=== PATIENT | male | born 1955 | race Caucasian/White ===

== ENCOUNTER 2018-06-11 13:33 | Emergency (ER) | payer OTHER ==
[~2018-06-11 13:33] MED LIST: EPINEPHrine 0.1 MG/ML SYG; ETOMIDATE 20 MG INJ; NA BICARBONATE 8.4% 50 ML SYG; SUCCINYLCHOLINE CHLORIDE 100 MG/5 ML SYG IV
[2018-06-11] MEDS: SOD CHLORIDE 0.9% 1,000 ML IV ×2 (13:55→14:44)
[2018-06-11 14:02] LABS: ADD MAN DIFF? NO
[2018-06-11 14:05] LABS: ABNORMAL IP MESSAGE 1; BASOPHIL # 0.1 10^3/ul (0.0-0.1); BASOPHILS % 0.5 % (0.0-2.0); EOSINOPHILS # 0.5 10^3/ul (0.0-0.5); EOSINOPHILS % 3.5 % (0.0-7.0); HEMATOCRIT 24.4 % (42.0-52.0); HEMOGLOBIN 8.3 g/dl (14.0-18.0); LYMPHOCYTES # 4.1 10^3/ul (0.8-2.9); LYMPHOCYTES % 31.4 % (15.0-51.0); MEAN CORPUSCULAR HEMOGLOBIN 34.6 pg (29.0-33.0); MEAN CORPUSCULAR VOLUME 101.7 fl (82.0-101.0); MONOCYTE # 2.3 10^3/ul (0.3-0.9); MONOCYTES % 17.9 % (0.0-11.0); NEUTROPHIL # 6.1 10^3/ul (1.6-7.5); NEUTROPHILS % 46.2 % (39.0-77.0); PLATELET COUNT 177 10^3/UL (140-415); POSITIVE DIFF @See below; RED CELL DISTRIBUTION WIDTH 20.1 % (11.5-14.5)
[2018-06-11 14:10] LABS: ALANINE AMINOTRANSFERASE 37 IU/L (13-69); ALBUMIN/GLOBULIN RATIO 0.68; ALKALINE PHOSPHATASE 446 IU/L (42-121); ANION GAP 16 (8-16); ASPARTATE AMINO TRANSFERASE 58 IU/L (15-46); BILIRUBIN,INDIRECT 0.3 mg/dl (0-1.1); BILIRUBIN,TOTAL 0.4 mg/dl (0.2-1.3); BLOOD UREA NITROGEN 74 mg/dl (7-20); CALCIUM 8.2 mg/dl (8.4-10.2); CARBON DIOXIDE 23 mmol/L (21-31); CHLORIDE 97 mmol/L (97-110); CREATININE 6.39 mg/dl (0.61-1.24); GLUCOSE 156 mg/dl (70-220); POTASSIUM 4.2 mmol/L (3.5-5.1); SODIUM 132 mmol/L (135-144); TOTAL PROTEIN 4.9 g/dl (6.1-8.1)
[2018-06-11 14:23] LABS: TROPONIN-I 0.064 ng/ml (0.000-0.120)
[2018-06-11] MEDS: ALBUMIN HUMAN 25% 100 ML IV (14:55)
[2018-06-11] MEDS ORDERED: NORepinephrine 8MG/250 ML (PMX 250 ML (17:02)
[2018-06-11] MEDS ORDERED: PROPOFOL 100 ML (17:07)
[2018-06-11 17:47] LABS: AMMONIA 74 umol/l (9-30)
[2018-06-11] MEDS: LACTULOSE 30ML CUP NGT (18:30)
[2018-06-11] MEDS: PROPOFOL 100 ML IV (18:30)
[2018-06-11 18:39] LABS: Arterial Base Excess -13.9 mmol/L (-3.0-3); Arterial Blood Gas Oxygen Sat 99.5 mmHG (95.0-98.0); Arterial COHb 0.5 % (0.0-3.0); Arterial Fraction of Oxyhgb 98.1 % (93.0-99.0); Arterial MetHb 0.9 % (0.0-1.5); Arterial Total Hemglobin 4.7 g/dl (12.0-18.0); Arterial pCO2 28.1 mmhg (35-45); MODE VENT - AC; Site LB
[2018-06-11] MEDS: EPINEPHrine 4 MG in SOD CHLORIDE 0.9% 246 ML IV (18:39)
[2018-06-11 18:55] LABS: IMMEDIATE SPIN CROSSMATCH 1
[2018-06-11 19:07] LABS: HEMOGLOBIN 3.5 g/dl (14.0-18.0)
[2018-06-11] MEDS: PHYTONADIONE 10 MG in DEXTROSE 5% 50 ML IVPB (19:39)
[2018-06-11 19:40] LABS: INR 1.83; PROTIME 21.6 Sec (11.9-14.9); PT RATIO 1.7
[2018-06-11 19:44] LABS: PARTIAL THROMBOPLASTIN TIME 83.8 Sec (25.0-35.0)
[2018-06-11] MEDS ORDERED: SOD CHLORIDE 0.9% 1,000 ML IV ×2 (19:54→21:09)
[2018-06-11 19:56] LABS: IMMEDIATE SPIN CROSSMATCH 1 9
[2018-06-11] MEDS ORDERED: ONDANSETRON 4 MG INJ IV (20:00)
[2018-06-11] MEDS ORDERED: ACETAMINOPHEN 325 MG TAB PO (20:00)
[2018-06-11 21:09] LABS: TYPE AND SCREEN 1
[2018-06-11] MEDS ORDERED: NORepinephrine 8MG/250 ML (PMX 250 ML IV (21:30)
[2018-06-11] MEDS ORDERED: ALBUTEROL HFA 8 GM INHALER INH (21:30)
[2018-06-11] MEDS ORDERED: PROPOFOL 100 ML IV (21:30)
[2018-06-11] MEDS ORDERED: SODIUM BICARBONATE (IV ADD) 150 MEQ in DEXTROSE 5% 1,000 ML IV (21:30)
[2018-06-11] MEDS ORDERED: IPRATROPIUM (HFA) 12.9 GM INHALER INH (21:30)
[2018-06-11] MEDS: morphine 2 MG INJ IV ×2 (23:22→23:37)
[2018-06-11] MEDS ORDERED: morphine (DRIP) 100 MG/100 ML 100 ML IV (23:30)
[2018-06-11] MEDS: LORAZEPAM 2 MG INJ IV (23:37)
[2018-06-12] MEDS ORDERED: PANTOPRAZOLE 40 MG INJ IV (06:00)
== END 2018-06-12 03:02 | disposition expired ==
LOC: E/R 06-12 03:02
DX: I46.9 Cardiac arrest, cause unspecified (principal); R58 Hemorrhage, not elsewhere classified; E11.22 Type 2 diabetes mellitus with diabetic chronic kidney disease; N18.6 End stage renal disease; Z96.651 Presence of right artificial knee joint; Z99.2 Dependence on renal dialysis
CPT/HCPCS: 31500; 36415; 36430; 36600; 70450; 71045; 74018; 74176; 76937; 80053; 82140; 82803; 82962; 84484; 85018; 85025; 85610; 85730; 86644; 86850; 86900; 86901; 86920; 86945; 92950; 93005; 94002; 96374; 96375; 99291-25